=== PATIENT | male | born 1985 | race Caucasian/White ===

== ENCOUNTER 2017-06-12 03:53 | Emergency (ER) | payer OTHER ==
--- NOTE | 2017-06-12 03:55 | EDPHY ---
H & P HPI/ROS: HPI CHIEF COMPLAINT: Right 3rd digit injury. HISTORY OF PRESENT ILLNESS: This patient 31-year-old male otherwise healthy no significant medical history. He dropped a KEG on his right 3rd digit distal aspect at work. He now has swelling and pain present there. This injury happened at 2:30 a.m. or an hour and half ago. On the palmar side there is a punctate lesion with some fresh blood. It does not appear to be and open injury. There is dark blood underneath the nail. But no significant subungual hematoma this time. He is neurovascularly intact. Full range of motion. Past Medical History: No medical history Past Surgical History: No surgical history Social History: Alcohol this evening 5 beers. Denies illicit drugs. Family History: Noncontributory. ROS REVIEW OF SYSTEMS: A comprehensive 10 point review of systems is otherwise negative aside from elements mentioned in the history of present illness. Exam Constitutional triage nursing summary reviewed, vital signs reviewed, awake/ alert. Eyes normal conjunctivae and sclera, EOMI, PERRLA. HENT normal inspection, atraumatic, moist mucus membranes, no epistaxis, neck supple/ no meningismus, no raccoon eyes. Respiratory clear to auscultation bilaterally, normal breath sounds, no respiratory distress, no wheezing. Cardiovascular rate normal, regular rhythm, no murmur, no edema, distal pulses normal. Gastrointestinal soft, non-tender, no rebound, no guarding, normal bowel sounds, no distension, no pulsatile mass. Genitourinary no CVA tenderness. Musculoskeletal no midline vertebral tenderness, full range of motion, no calf swelling, no tenderness of extremities, no meningismus, good pulses, neurovascularly intact. Right hand: Neurovascular intact. Of the 3rd digit there is significant swelling to the distal aspect. Normal cap refill. On the palmar side there is a punctate hole with some fresh blood. On the dorsal aspect of the nail there is a small subungual hematoma, not very large a no lifting of the now at this time. Full range of motion. Neurovascular intact. Skin pink, warm, & dry, no rash, skin atraumatic. Neurologic awake, alert and oriented x 3, AAOx3, moves all 4 extremities equally, motor intact, sensory intact, CN II-XII intact, normal cerebellar, normal vision, normal speech. Psychiatric normal mood/affect. Heme/Lymph/Immune no lymphadenopathy. Differential Diagnosis: Includes but is not limited to in a particular order, soft tissue injury, finger fracture, tuft fracture, open fracture Medical Decision Making: Plan for this patient x-ray of the 3rd digit to rule out fracture. Patient be splinted in a finger splint. Started on Keflex. Will need close Hand surgery follow-up. Additionally I gave him return precautions about his subungual hematoma this gets bigger causes him more discomfort he should come back to emergency room for evaluation. This time does not need to be drained. Re-evaluation: X-ray reviewed by myself. Right hand. 3rd digit appears this shows a comminuted distal tuft fracture. 0429: Patient placed in splint for comfort and protection. Antibiotics Keflex 1st dose given here in emergency room. Keflex for home. Hand surgery referral. Return precautions given. He understands. Source: Patient - Personal History Tetanus Vaccine Date: 5 years ago - Medical/Surgical History Hx Asthma: No Hx Chronic Respiratory Disease: No Hx Diabetes: No Hx Cardiac Disease: No Hx Renal Disease: No Hx Cirrhosis: No Hx Alcoholism: No Hx HIV/AIDS: No Hx Splenectomy or Spleen Trauma: No Other PMH: DENIES - Social History Smoking Status: Current some day smoker Constitutional: Initial Vital Signs Temperature (C) 36.9 C 06/12/17 03:58 Heart Rate 94 06/12/17 03:58 Respiratory Rate 16 06/12/17 03:58 Blood Pressure 144/107 H 06/12/17 03:58 O2 Sat (%) 92 06/12/17 03:58 O2 Delivery Mode Room Air Allergies/Adverse Reactions: No Known Allergies Allergy (Verified 06/12/17 04:01) Home Medications: Medication Instructions Recorded Miscellaneous Medical Supply [NO 1 ea MISC AD 03/07/12 HOME MEDS] Cephalexin [Keflex] 500 mg PO Q6H #28 cap 06/12/17 Hydrocodone/APAP 5/325 [[place] 1 - 2 tab PO Q4H PRN #10 tab 06/12/17 5/325] Ibuprofen [Motrin (*)] 800 mg PO Q6-8PRN #10 tab 06/12/17 Departure - Departure Disposition: Home, Routine, Self-Care Clinical Impression: Finger fracture, right Qualifiers: Encounter type: initial encounter Finger: middle finger Fracture type: closed Phalanx: distal Fracture alignment: nondisplaced Qualified Code(s): S62.662A - Nondisplaced fracture of distal phalanx of right middle finger, initial encounter for closed fracture Condition: Good Instructions: Finger Fracture (ED) Additional Instructions: 1.Stay in her splint for comfort. 2. Ice your hand. 3. Anti-inflammatories for pain control Tylenol Motrin. 4. Follow up with Hand surgery. 5. Antibiotics as prescribed. 6. Watch for infection. This includes increasing swelling, redness, pus, drainage, fever, pain Referrals: NONE *PRIMARY CARE P,. [Primary Care Provider] - As per Instructions Ian Munguia MD [Medical Doctor] - As per Instructions Prescriptions: Cephalexin [Keflex] 500 mg PO Q6H #28 cap Hydrocodone/APAP 5/325 [[place] 5/325] 1 - 2 tab PO Q4H PRN #10 tab PRN Reason: Pain, Moderate Ibuprofen [Motrin (*)] 800 mg PO Q6-8PRN #10 tab
[2017-06-12 04:00] VITALS: RESP 16
[2017-06-12] MEDS ORDERED: CEPHALEXIN 500MG PREPACK#4 BTL TAKEHOME ONE (04:28)
[2017-06-12] MEDS ORDERED: CEPHALEXIN 500 MG CAP PO ONE (04:28)
[2017-06-12 04:48] VITALS: BP 132/77; PULSE 65; TEMP 97.9; O2SAT 96
== END 2017-06-12 04:49 | disposition home or self-care (01) ==
DX: S62.662A Nondisplaced fracture of distal phalanx of right middle finger, initial encounter for closed fracture (principal); F17.200 Nicotine dependence, unspecified, uncomplicated; W20.8XXA Other cause of strike by thrown, projected or falling object, initial encounter; Y99.0 Civilian activity done for income or pay
CPT/HCPCS: L3925